=== PATIENT | female | born 1980 | race Caucasian/White ===

== ENCOUNTER 2022-05-18 13:59 | Outpatient (CLI) | payer MEDICARE, SELFPAY ==
[2022-06-01 09:49] LABS: Herpes Simplex Subtype Source Blood
[2022-06-01 09:50] LABS: HSV 1 Subtype by PCR Detected
[2022-06-01 09:55] LABS: HSV 2 Subtype by PCR Not Detected
== END 2022-05-18 14:00 | disposition home or self-care (01) ==
LOC: LKVREF 13:59
PROVIDERS: Visit Provider Emergency Medicine
DX: R30.0 Dysuria (principal); R05.9 Cough, unspecified
CPT/HCPCS: 86694; 87491; 87529; 87591